=== PATIENT | male | born 1990 | race African-American/Black ===

== ENCOUNTER 2019-04-04 18:56 | Emergency (ER) | payer OTHER, SELFPAY ==
[~2019-04-04] VITALS: Ht 172.7 cm; Wt 79.1 kg
[2019-04-04 19:57] LABS: INFLUENZA A AMPLIFICATION NEGATIVE (NEGATIVE); INFLUENZA B AMPLIFICATION NEGATIVE (NEGATIVE)
[2019-04-04 22:45] VITALS: BP 121/79
== END 2019-04-04 22:50 | disposition home or self-care (01) ==
LOC: M ED 18:56 → EDBD 18:56 → M ED 22:50
DX: J06.9 Acute upper respiratory infection, unspecified (principal); Z20.89 Contact with and (suspected) exposure to other communicable diseases